=== PATIENT | male | born 1960 | race Caucasian/White ===

== ENCOUNTER → 2018-08-26 | Day surgery (SDC) | payer OTHER ==
[2018-08-24 13:20] LABS: BASOPHILS # (AUTO) 0.1 (0.0-0.1); BASOPHILS % 0.9 % (0.0-1.0); EOSINOPHILS # (AUTO) 0.2 (0.0-0.4); EOSINOPHILS % 1.6 % (0.0-6.0); HEMATOCRIT 45.2 % (38.2-49.6); HEMOGLOBIN 15.1 g/dL (14.0-18.0); LYMPHOCYTES % 22.6 % (18.0-39.1); MEAN CORPUSCULAR HEMOGLOBIN 31.3 pg (28-32); MEAN CORPUSCULAR HGB CONC 33.4 g/dL (31-35); MEAN CORPUSCULAR VOLUME 93.6 fL (81-99); MONOCYTES # (AUTO) 0.9 (0.2-0.8); MONOCYTES % 6.5 % (4.4-11.3); NEUTROPHILS % 67.9 % (38.7-80.0); PLATELET COUNT 287 x10e3/uL (140-360); RED BLOOD COUNT 4.83 x10e6/uL (4.3-5.7); RED CELL DISTRIBUTION WIDTH 14.1 % (11.7-14.4)
[~2018-08-26] MED LIST: ACETAMINOPHEN 1000 MG/100 ML IV ONE; AMLODIPINE BESYL5 MG PO; BESYLATE PO; BUPIVACAINE 0.25% 30ML SDV INJ ONE; CEFAZOLIN SOD 1 GM/NS 50ML 50 ML IV ONE; DEXAMETHASONE SOD PHOS INJ 4 MG/ML VIAL ONE; FENTANYL CITRATE/PF 100MCG/2 ML INJ ONE; HYDROMORPHONE 2MG/ML 2 MG/ML ML ONE; KETOROLAC TROMETHAMINE 30 MG/ML VIAL ONE; LIDOCAINE HCL 2% LOCAL INJ 5 ML SDV VIAL INJ ONE; MICARDIS40 MG PO; MIDAZOLAM HCL 2 MG/2 ML VIAL ONE; ONDANSETRON HCL INJ 2MG/ML 2ML 2 MG/ML VIAL ONE; PROPOFOL IV EMULSION 10 MG/ML 20 ML VIAL ONE; SEVOFLURANE INHAL SOLN 250 ML PEN BTL ONE
[2018-08-26 16:25] VITALS: BP 141/92
--- NOTE | 2018-08-26 23:40 | Operative Report ---
DATE OF PROCEDURE: 08/26/2018 SURGEON: Jesse Calvo MD PREOPERATIVE DIAGNOSIS: Left testicle mass. POSTOPERATIVE DIAGNOSIS: Left testicle mass. PROCEDURE: Left radical orchiectomy. SPECIMEN ACCESSIONER: Vineet Bradshaw M.D. ANESTHESIA: General. ESTIMATED BLOOD LOSS: Minimal (10 mL). SPECIMENS: Left testicle and spermatic cord. COMPLICATIONS: None. INDICATION FOR PROCEDURE: Mr. Castro is a very pleasant 58-year-old male patient, who has had a left testicle mass for over a year. He presented to the office after obtaining insurance. I had a long discussion regarding the alternatives, the risks and the benefits, including doing nothing,or radical orchiectomy. He voiced understanding of the options, the alternatives, the risks, and the benefits, and he elected to proceed with radical orchiectomy. He explicitly understands standard risks outlined by the state for radical orchiectomy. DESCRIPTION OF PROCEDURE: After informed consent was obtained, the patient was taken to the operating suite. He was placed supine on the operating table. He underwent general anesthesia by the service. Time out was taken. The side was confirmed with the preoperative marking. Attention was turned to the left inguinal region after sterilely prepping and draping. A transverse incision was made of the skin and subcutaneous tissue, was carried down to the level of the spermatic cord, where this was doubly looped with a Natty drain. The cord was then dissected down to the level of the inguinal canal .It was divided into 2 bundles, clamped, ligated and tied with stick ties #1 silk. At this time, the distal cord was divided with both segments clamped to avoid any tumor spillage. The cord was then dissected down and The testicle delivered .. Meticulous hemostasis was obtained with Bovie electrocautery. The wound was irrigated. After testicle and cord removed,The scrotum was placed back in its normal anatomic position. Randy's fascia was closed with running 2-0 Vicryl stitch. Subcutaneous tissue was closed with running 2-0 subcutaneous stitch. The wound was again irrigated. The skin was closed with paresh. The patient was awakened from anesthesia and transported to the recovery room in excellent condition with no untoward effects noted. All sponge and instrument counts were correct x2. MD BRENDA Diallo/JAZ /[id number] MTDD
== END | disposition home or self-care (01) ==
LOC: OR 11:55
PROVIDERS: ATTEND Urology
DX: D40.12 Neoplasm of uncertain behavior of left testis (principal); N43.40 Spermatocele of epididymis, unspecified; R35.1 Nocturia; I10 Essential (primary) hypertension; K75.9 Inflammatory liver disease, unspecified; F17.210 Nicotine dependence, cigarettes, uncomplicated; Z01.810 Encounter for preprocedural cardiovascular examination; Z01.812 Encounter for preprocedural laboratory examination
CPT/HCPCS: 36415; 54530; 85025; 88309; 88342; 93005; J0131; J0690; J1100; J1170; J1885; J2001; J2250; J2405; J2704; 88302